=== PATIENT | female | born 1960 | race Two or more races ===

== ENCOUNTER 2020-01-05 05:58 | Day surgery (SDC) | payer OTHER ==
[~2020-01-05 05:58] MED LIST: METO PO; SYNTHROID PO
[2020-01-05] MEDS ORDERED: COLACE100 MG PO (09:51)
[2020-01-05] MEDS ORDERED: PERCOCET 5-3251 EACH PO (09:51)
== END 2020-01-05 20:00 | disposition home or self-care (01) ==
LOC: CIR.AMB 05:58 → ADM 11:30 → CIR.AMB 20:00
PROVIDERS: ATTEND Surgery
DX: K64.8 Other hemorrhoids (principal)